=== PATIENT | female | born 1965 | race Caucasian/White ===

== ENCOUNTER → 2024-02-27 | Outpatient (CLI) | payer OTHER ==
[2024-02-27 14:42] LABS: Alanine Aminotransfer (ALT/SGP 33 U/L (12-78); Albumin, Blood 3.8 g/dL (3.4-5.0); Albumin/Globulin Ratio 1.2 (0.8-1.8); Alk Phos 116 U/L (50-136); Anion Gap 10 mmol/L (3-11); Aspartate Aminotrans (AST/SGOT 16 U/L (12-37); Bilirubin, Total 0.3 mg/dL (0.1-1.0); Blood Urea Nitrogen 13 mg/dL (8-24); Bun/Creatinine Ratio 18.4 (12.0-20.0); CHOL/HDL RATIO 3.2; CO2, Blood 26 mmol/L (21-32); Calcium, Blood 9.1 mg/dL (8.5-10.1); Chloride, Blood 111 mmol/L (98-108); Cholesterol 180 mg/dL (50-200); Creatinine, Blood 0.71 mg/dL (0.40-1.00); Globulin, Blood 3.1 g/dL (2.2-4.0); Glomerular Filtration Rate 100 (60-); Glucose, Blood 102 mg/dL (70-99); HDL Cholesterol 56 mg/dL (>39); LDL/HDL RATIO 1.9; Low Density Lipoprotein Chol 104 mg/dL (0-110); Potassium, Blood 4.6 mmol/L (3.5-5.5); Sodium, Blood 142 mmol/L (136-145); Total Protein, Blood 6.9 g/dL (6.4-8.2); Triglycerides 102 mg/dL (30-160); Very Low Density Lipoprot Chol 20 mg/dL (6-32)
== END ==
LOC: LAB 13:35 → LAB SHORT 13:35
PROVIDERS: Internal Medicine
DX: E78.2 Mixed hyperlipidemia (principal)
CPT/HCPCS: 80053; 80061